=== PATIENT | male | born 1940 | race Caucasian/White ===

== ENCOUNTER 2018-01-26 08:30 | Inpatient (IN) | payer OTHER ==
[2018-01-23 14:16] VITALS: BMI 33.0
[2018-01-26] MEDS ORDERED: oxyCODONE HCL 10 MG SUSTAINED ACTING TABLET PO ONE (09:04)
[2018-01-26] MEDS ORDERED: DEXAMETHASONE SOD PHOSPHATE/PF 10 MG/ML SDV ONE (11:15)
[2018-01-26] MEDS ORDERED: BUPIVACAINE HCL/PF (5 MG/ML) 30 ML VIAL IJ ONE (11:16)
[2018-01-26] MEDS ORDERED: MIDAZOLAM HCL 2 MG/2 ML SINGLE DOSE VIAL ONE ×2 (11:16→13:23)
[2018-01-26] MEDS ORDERED: BUPIVACAINE LIPOSOME/PF (EXPAREL) 266 MG/20 ML VIAL ONE (11:29)
[2018-01-26] MEDS ORDERED: THROMBIN (BOVINE) 5,000 UNIT VIAL TP ONE (11:30)
[2018-01-26] MEDS ORDERED: LIDOCAINE 1%/EPI 1:100000 (20 ML MULTI DOSE VIAL) ONE (11:30)
--- NOTE | 2018-01-26 12:08 | HP ---
History & Physical Update - History History: No Change - Physical Physical: No Change - Assessment Assessment: No Change - Plan Plan: No Change (01/16/2018)
[2018-01-26] MEDS ORDERED: ONDANSETRON 4 MG/2 ML VIAL ONE (13:13)
[2018-01-26] MEDS ORDERED: DEXAMETHASONE SOD PHOSPHATE 4 MG/1 ML VIAL ONE (13:13)
[2018-01-26] MEDS ORDERED: GUM MASTIC/STORAX/MSAL/ALCOHOL 1 DRP DROPSBTL MC ONE (13:41)
[2018-01-26] MEDS ORDERED: oxyCODONE HCL 5 MG TABLET PO PRN ×3 (14:32→15:33)
[2018-01-26] MEDS ORDERED: ONDANSETRON 4 MG/2 ML VIAL IVPUSH PRN ×2 (14:32→15:33)
[2018-01-26] MEDS ORDERED: BUPIVACAINE HCL 0.25% 125 MG/50 ML VIAL ONE (14:34)
[2018-01-26] MEDS ORDERED: BUPIVACAINE 0.75% IN DEXTROSE/PF 2ML AMPULE NR ONE (14:37)
[2018-01-26] MEDS ORDERED: LACTATED RINGERS SOLUTION 1,000 ML IV SCH ×2 (14:45→15:45)
--- NOTE | 2018-01-26 15:46 | OP ---
Operative Note - Note: Operative Date: 01/26/18 Pre-Operative Diagnosis: lumbar spondylolisthesis Operation: s/p posterior lumbar decompression, instrumentation, fusion with transforaminal interbody fusion at L4-L5 with allograft and neuromonitoring Surgeon: Mukul Ash Chief Design Drafter: Sarahy Atkinson Anesthesiologist/RESIDENTIAL AIR SEALING TECHNICIAN: Gavin Pastrana Anesthesia: Spinal Estimated Blood Loss (mls): 20 Fluid Volume Replaced (mls): 1,100 Operative Report Dictated: Yes
--- NOTE | 2018-01-26 15:46 | OP ---
DATE OF OPERATION: 01/26/2018 PREOPERATIVE DIAGNOSES: 1. L4-5 spinal stenosis. 2. L4-5 spondylolisthesis. POSTOPERATIVE DIAGNOSES: 1. L4-5 spinal stenosis. 2. L4-5spondylolisthesis. PROCEDURE PERFORMED: 1. L4-5 transforaminal lumbar interbody fusion. 2. Placement of prosthetic cage. 3. Placement of instrumentation. SURGEON: Mukul Ash MD STATION CAPTAIN: SONNY Watt ESTIMATED BLOOD LOSS: 50 mL. INTRAVENOUS FLUIDS: Per Anesthesia. ANESTHESIA: Spinal/TLIP. COMPLICATIONS: There were none. DISPOSITION: Patient brought to PACU in stable condition. INDICATION FOR SURGERY: The patient is a 77-year-old gentleman who has been suffering from pain from his back down his leg. X-rays and MRI were completed which noted that he had spinal stenosis at L4-5 secondary to his spondylolisthesis. He had gone through an exhaustive course of treatment for this which included medications, physical therapy, as well as injections. Unfortunately, his pain continued to persist despite all this. At this point risks, benefits, and alternatives were discussed, and the patient consented to surgery. DESCRIPTION OF PROCEDURE: Patient brought to the operating room by anesthesia staff. After appropriate patient identification was performed, spinal anesthesia was given along with TLIP block. Patient was able to position himself prone onto the OR table, with all areas of bony prominences well padded. At this time the C-arm was brought in. The L4-L5 pedicles were marked out. Next, 10 mL of lidocaine with epinephrine was injected into his back. At this time, his back was prepped and draped in a sterile manner. At this point, timeout was completed. Incisions were made bilaterally over the L4-L5 pedicles. Dissection was carried down to the fascia. Fascia was then split at this time. At this point the C-arm was brought in. Under C-arm guidance, trocars were advanced into both the L4 and L5 pedicles. Through the trocars, wire was inserted. Over the wires, tap was performed. The screws were inserted. On the right- hand side retractor blades were set up to expose the L4-5 facet joint. This was confirmed with x-ray. The facet joint was removed with an osteotome and a bur. The disk was entered. Using a series of pituitaries, Kerrison and curets, the diskectomy was completed. The endplates were decorticated at this time. Bone graft was laid down. A cage filled with bone graft was placed in. Tulip heads were placed over the screws. A sal was measured and placed in, caps were placed. Compression and final tightening was performed. AP and lateral x-rays confirmed the instrumentation to be in good position. The fascia was closed via No. 1 Vicryl suture. Subcutaneous tissue was closed with 2-0 Vicryl sutures. Skin was closed with 3-0 Monocryl suture. Dermabond was applied. Steri-Strips were applied. Sterile dressing was applied. Patient was placed supine on the OR bed and brought to the PACU in stable condition. Linda MILLER/[id number] MTDD
[2018-01-26] MEDS ORDERED: ACETAMINOPHEN 325 MG TABLET (FP) PO SCH (16:00)
[2018-01-26] MEDS ORDERED: ACETAMINOPHEN 325 MG TABLET (FP) ONE (16:46)
[2018-01-26] MEDS ORDERED: CEFAZOLIN 1 GM/D5W 1 GM/50 ML BAG ONE (17:49)
[2018-01-26] MEDS ORDERED: diazePAM 2 MG TABLET ONE (17:49)
[2018-01-26] MEDS ORDERED: CEFAZOLIN 1 GM/D5W 1 GM/50 ML BAG IVPB SCH (18:00)
[2018-01-26] MEDS ORDERED: diazePAM 2 MG TABLET PO SCH (18:00)
[2018-01-26 19:35] VITALS: BP 133/71; PULSE 78; TEMP 97.8
--- NOTE | 2018-01-26 20:06 | SURG ---
Surgery Commissary Production Supervisor Note Commissary Production Supervisor: Sarahy Atkinson PA-C Date of Service: 01/26/18 Diagnosis: lumbar spondylolisthesis Procedure: posterior lumbar decompression, instrumentation, fusion and transforaminal interbody fusion of L4-L5 with allograft and neuromonitoring I was present for the entirety of the operative procedure. For further detail, please refer to operative report. Visit type - Case Type Case Type: Scheduled - Emergency Emergency Visit: No - New patient This patient is new to me today: Yes Date on this admission: 01/26/18
[2018-01-26] MEDS ORDERED: ATORVASTATIN CA 80 MG TABLET (FP) PO SCH (22:00)
[2018-01-27] MEDS ORDERED: LORATADINE 10 MG TABLET PO SCH (10:00)
[2018-01-27] MEDS ORDERED: metoPROLOL SUCCINATE 25 MG TAB.SR.24H (FP) PO SCH (10:00)
[2018-01-27] MEDS ORDERED: DULoxetine HCL 30 MG CAPSULE.DR (FP) PO SCH (10:00)
[2018-01-27] MEDS ORDERED: PATIENT'S OWN MEDICATION (NON-FORMULARY) (Bupropion Hcl [Bupropion Hcl Er] 200 MG) PO SCH (10:00)
== END 2018-01-26 19:25 | disposition home or self-care (01) | DRG 460 ==
LOC: FM/S 09:29
PROVIDERS: ADMIT Orthopaedic Surgery Orthopaedic Surgery of the Spine; ATTEND Orthopaedic Surgery Orthopaedic Surgery of the Spine
PROC: 0SG00AJ Fusion of Lumbar Vertebral Joint with Interbody Fusion Device, Posterior Approach, Anterior Column, Open Approach (ICD-10-PCS; principal; 2018-01-26 13:23)
DX: M43.16 Spondylolisthesis, lumbar region (principal); M48.061 Spinal stenosis, lumbar region without neurogenic claudication
CPT/HCPCS: 72100-TC-FY; 94760